=== PATIENT | female | born 1970 | race Asian ===

== ENCOUNTER → 2024-07-23 | Outpatient (CLI) | payer BC, SELFPAY ==
--- NOTE | 2024-07-23 | XR_ITS ---
Examination: PA lateral chest 2 views Technique: Upright PA lateral chest 2 views Exam date and time: July 23, 2024 1054 hrs. Indications: TB screening Findings: Mild prominence left ventricle No pneumonia or pulmonary edema Moderate osteopenia Impression: No pneumonia identified No radiographic findings of tuberculosis
== END | disposition home or self-care (01) ==
PROVIDERS: PCP Family Medicine; Referring Provider Family Medicine; Visit Provider Family Medicine
DX: R76.11 Nonspecific reaction to tuberculin skin test without active tuberculosis (principal)
CPT/HCPCS: 71046